=== PATIENT | female | born 1980 | race Two or more races ===

== ENCOUNTER 2017-02-26 11:23 | Emergency (ER) | payer OTHER ==
[2017-02-26 13:32] VITALS: BP 139/83
--- NOTE | 2017-02-26 16:16 | UC ---
Lower Extremity/Ankle HPI - HPI Summary HPI Summary: PATIENT PRESENTS TO WITH LEFT LATERAL LEG PAIN AND HAMSTRING PAIN WHICH IS MAINLY LOCATED INFERIOR TO THE BUTTOCKS AND RADIATES TO THE INFERIOR GROIN. SHE STATES SHE WAS WALKING A LOT APPROXIMATELY 1 WEEK AGO AND DEVELOPED THE LEG PAIN ONLY A FEW DAYS AFTER WHICH HAS PROGRESSIVELY GOTTEN WORSE. SHE IS AMBULATING BUT STATES SHE HAS BEEN WALKING WITH A SLIGHT LIMP D/T PAIN. DENIES FEVER, CHILLS OR SWEATS. NO PERSONAL HX OF MALIGNANCY, MUSCLE STRAINS, BLOOD CLOTS OR GOUT. 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 SHE TAKES OCP'S, BUT DENIES SMOKING. ENDORSES RECENT TRAVEL ON A TRAIN. DENIES CALF PAIN OR SOB. PAIN IS BETTER WITH STRETCHING, AND WORSE WITH WALKING. DENIES NUMBNESS/ TINGLING. - History of Current Complaint Chief Complaint: UCLowerExtremity Stated Complaint: LEG PAIN Time Seen by Provider: 02/26/17 13:35 Hx Obtained From: Patient Hx Last Menstrual Period: 3 weeks ago ?: No Onset/Duration: Gradual Onset Severity Initially: Moderate Severity Currently: Mild Pain Intensity: 1 Pain Scale Used: 0-10 Numeric Aggravating Factor(s): Standing, Ambulation Alleviating Factor(s): Rest Able to Bear Weight: Yes - Risk Factors Gout Risk Factors: Negative DVT Risk Factors: Estrogen, Recent Travel Septic Arthritis Risk Factor: Negative - Allergies/Home Medications Allergies/Adverse Reactions: Allergies Allergy/AdvReac Type Severity Reaction Status Date / Time Sulfa Drugs Allergy Unknown Unknown Verified 02/22/15 16:12 Reaction Details Home Medications: Home Medications Multiple Vitamin [Multi Vitamin] 1 tab PO 02/26/17 [History] PMH/Surg Hx/FS Hx/Imm Hx Previously Healthy: Yes Endocrine History Of: Denies: Diabetes, Thyroid Disease Cardiovascular History Of: Reports: Hypertension - NO MEDS YET Denies: Cardiac Disorders Respiratory History Of: Denies: COPD, Asthma GI/ History Of: Denies: Ulcer - Surgical History Surgical History: Yes Surgery Procedure, Year, and Place: 2011 TUBAL LIGATION. 2007 - LEFT - Arthoscopic KNEE SURGERY - Family History Known Family History: Positive: Unknown - Social History Occupation: Employed Full-time Lives: With Family Alcohol Use: Occasionally Substance Use Type: None Smoking Status (MU): Never Smoked Tobacco Review of Systems Constitutional: Negative Skin: Negative ENT: Negative Respiratory: Negative Cardiovascular: Negative Motor: Decreased ROM - PAIN WITH ABDUCTION OF THE HIP Neurovascular: Negative Musculoskeletal: Myalgia - LATERAL LEFT LEG PAIN OVER THIGH Neurological: Negative Psychological: Negative All Other Systems Reviewed And Are Negative: Yes Physical Exam Triage Information Reviewed: Yes Appearance: Well-Appearing, No Pain Distress Vital Signs: Initial Vital Signs Temp 97.8 F 02/26/17 13:27 Pulse 83 02/26/17 13:27 Resp 18 02/26/17 13:27 BP 139/83 02/26/17 13:27 Pulse Ox 100 02/26/17 13:27 Eye Exam: Normal Eyes: Positive: Conjunctiva Clear Neck exam: Normal Neck: Positive: Supple, Nontender Respiratory: Positive: Lungs clear, Normal breath sounds Musculoskeletal: Positive: Strength Intact, ROM Limited @ - ABDUCTION OF THE LEFT HIP, ADDUCTION WITHOUT PAIN, L5-S1 NERVE ROOT ENDINGS INTACT Neurological Exam: Normal Neurological: Positive: Alert Psychological Exam: Normal Psychological: Positive: Normal Response To Family Lower Extremity Course/Dx - Course Course Of Treatment: PATIENTS HISTORY REVIEWED. EXPLAINED POSSIBILITIES OF WHAT COULD BE CAUSING THE PAIN. DISCUSSED TENDINITIS D/T RECENT INCREASE IN ACTIVITY AND LOCATION OF PAIN. VARICOSE VEINS COULD BE CONTRIBUTORY, BUT D/T LOCATION, DVT LESS LIKELY. PATIENT ENCOURAGED TO TRY MOBIC, MOIST HEAT, AND STRETCHING AND RETURN TO IF SYMPTOMS DO NOT IMPROVE. PATIENT IS OK WITH PLAN AND READY FOR DISCHARGE. - Differential Dx/Diagnosis Differential Diagnosis/HQI/PQRI: Bursitis, Sprain, Strain, Tendonitis Provider Diagnoses: TENDINITIS Discharge - Discharge Plan Condition: Stable Disposition: HOME Prescriptions: Meloxicam(NF) [Mobic(NF)] 15 mg PO DAILY #15 tab Patient Education Materials: Muscle Strain (ED), Tendinitis (ED) Referrals: Sugar [facility] [Primary Care Provider] - Additional Instructions: Follow up with PCP Mobic daily for 15 days in the morning. Moist heat to the area several times per day Rest the area as much as possible
== END 2017-02-26 14:08 | disposition home or self-care (01) ==
LOC: UCEAST 11:23
DX: M76.9 Unspecified enthesopathy, lower limb, excluding foot (principal); I10 Essential (primary) hypertension; Z88.2 Allergy status to sulfonamides
CPT/HCPCS: 99212; G0463